=== PATIENT | female | born 1935 | race Caucasian/White ===

== ENCOUNTER → 2018-11-10 | Outpatient (CLI) | payer MEDICARE, OTHER ==
--- NOTE | 2018-11-10 16:24 | MRI ---
Study: MRI of the Left Knee. Indication: LEFT KNEE PAIN Technique: Multiplanar, multi sequence MRI of the left knee was obtained without intravenous contrast. Comparison: None. Findings: ACL, PCL, MCL, and lateral collateral ligament complex intact. Degenerative signal posterior horn and body medial meniscus without tear. Grade 2 and 3 chondral thinning throughout the medial compartment. Large bucket-handle tear of the lateral meniscus with the handle flipped medially into the intercondylar notch. Areas of grade 3 chondral thinning throughout the lateral compartment but with subtle grade 4 chondrosis and subchondral marrow change at the medial margin of the lateral tibial plateau. Tendinosis quadriceps tendon insertion and patellar tendon origin. Patella normally located. No high-grade chondral defect patellofemoral compartment. Small knee effusion. No acute fracture. Impression: Bucket-handle tear lateral meniscus with the handle flipped medially. Degenerative signal medial meniscus without tear. Areas of grade 2 and 3 chondral thinning of the medial compartment as well as grade 3 and mild grade 4 chondral loss of the lateral compartment. Small knee effusion. Electronically signed by: Gabe Gimenez MD 11/10/2018 4:22 PM CDT
== END ==
LOC: MRI 10:14
PROVIDERS: ATTEND General Practice
DX: S83.282A Other tear of lateral meniscus, current injury, left knee, initial encounter (principal); M94.8X6 Other specified disorders of cartilage, lower leg

== ENCOUNTER → 2018-11-20 | Outpatient (CLI) | payer MEDICARE, OTHER ==
--- NOTE | 2018-11-22 10:42 | RAD ---
EXAM: Knee,Left Complete CLINICAL HISTORY: M25.562, M25.552 COMPARISON STUDY: None. TECHNICAL: 4 views of the knee. FINDINGS: Views of the knee demonstrate no fracture or dislocation. There is no acute bone abnormality. There is no visible effusion. There are minimal age-related changes of all 3 compartments. IMPRESSION: NEGATIVE ADULT LEFT KNEE. Electronically signed by: Sammy Sanchez MD 11/22/2018 10:40 AM CDT
--- NOTE | 2018-11-22 10:43 | RAD ---
EXAM: Pelvis and hip CLINICAL HISTORY: Pain COMPARISON STUDY: None TECHNICAL: AP pelvis. FINDINGS: The pelvic ring is intact and negative. Both hips are in anatomic alignment. There is no identifiable fracture. There is no osseous abnormality. There are no minimal degenerative changes of each hip without joint space loss. IMPRESSION: 1. No fracture or dislocation. 2. Mild osteoarthritic changes of both hips.. Electronically signed by: Sammy Sanchez MD 11/22/2018 10:41 AM CDT
== END ==
LOC: RAD 07:50
PROVIDERS: ATTEND Orthopaedic Surgery
DX: M16.0 Bilateral primary osteoarthritis of hip (principal); M25.562 Pain in left knee

== ENCOUNTER → 2018-11-20 | Day surgery (SDC) | payer OTHER ==
--- NOTE | 2018-11-20 14:28 | HP ---
CHIEF COMPLAINT: Knee pain. HISTORY OF PRESENT ILLNESS: Tabitha is an 82-year-old female with a history of an injury that was directly to the knee, but happened when she stood up and had the acute onset of pain and limited range of motion. She denied any radiation of pain or neurologic symptoms. Immediately after she was able to walk again, she had limited motion. Because of that, she was admitted to assisted care for assistance. She saw Dr. Villa who referred her to us. She continues to complain of limited range of motion. PAST SURGICAL HISTORY: 1. Knee arthroscopy on the contralateral side. MEDICATIONS: 1. Aspirin. 2. Lisinopril. 3. Namenda. 4. Protonix. 5. Synthroid. 6. Wellbutrin. 7. Meclizine. 8. Tylenol. ALLERGIES: NO KNOWN DRUG ALLERGIES. PAIN CONTRACT: She is not currently under a pain contract. CODE STATUS: DNR. IMMUNIZATIONS: Up to date. FAMILY HISTORY: None pertinent to today's complaint. SOCIAL HISTORY: The patient does not drink, smoke or use any illicit drugs. REVIEW OF SYSTEMS: Negative except as indicated in the History of Present Illness. PHYSICAL EXAMINATION: VITAL SIGNS: Blood pressure 118/87. Pulse 102. Height 5'4". Weight 170 pounds. MENTAL STATUS: The patient is awake, alert, and is able to give a good history and participate in the physical. The patient is oriented to person, place and time. SKIN: Normal tone and turgor. HEENT: Normocephalic, atraumatic. Pupils equal, round and reactive. Mucosal membranes are moist. NECK: Normal range of motion. No thyromegaly, no lymphadenopathy. CHEST: Normal respiratory excursion. CARDIAC: Regular rate and rhythm. No murmurs, rubs or gallops. MUSCULOSKELETAL: The bilateral upper extremities show full active range of motion. She has intact sensation and they are warm and well perfused. There is no deformity and no crepitus. Strength is 5/5. The right lower extremity shows full range of motion in the shoulder, elbow, wrist and digits. Sensation is intact. It is warm and well perfused. There are no deformities. The left lower extremity shows full range of motion of the hip. She lacks about 5 to 10 degrees of extension in the knee and she has about 85 degrees of flexion. She has pain throughout her range of motion, but especially at the extremes. She has no varus/valgus or anterior/posterior laxity. She has a mild effusion right now. IMAGING: X-rays show arthritis. An MRI was performed and does show a bucket handle tear of the lateral meniscus. ASSESSMENT: 1. Bucket handle tear of the meniscus. PLAN: At this point, given the limited range of motion and the type of tear she has got, I think it would be prudent to proceed with arthroscopy. We have discussed the risks, benefits, and alternatives to that and the patient has given informed consent. #[id number] [facility]
== END ==
LOC: AMB 08:00
PROVIDERS: ATTEND Orthopaedic Surgery
DX: Z01.812 Encounter for preprocedural laboratory examination (principal); S83.252D Bucket-handle tear of lateral meniscus, current injury, left knee, subsequent encounter; Z53.9 Procedure and treatment not carried out, unspecified reason